=== PATIENT | female | born 1975 | race Two or more races ===

== ENCOUNTER 2024-08-27 23:07 | Inpatient (IN) | payer OTHER ==
[~2024-08-27] VITALS: Ht 170.2 cm; Wt 85.3 kg
[2024-08-27 23:37] LABS: BASOPHILS % (AUTO) 0.5 % (0.0-2.0); EOSINOPHILS # (AUTO) 0.2 K/uL (0.0-0.7); EOSINOPHILS % (AUTO) 3.1 % (0.0-7.0); HEMATOCRIT 28.4 % (31.2-41.9); HEMOGLOBIN 9.6 g/dL (10.9-14.3); LYMPHOCYTES # (AUTO) 0.9 K/uL (0.8-4.8); LYMPHOCYTES % (AUTO) 14.5 % (20.5-51.5); MEAN CORPUSCULAR HEMOGLOBIN 34.1 uug (24.7-32.8); MEAN CORPUSCULAR HGB CONC 34 g/dL (32.3-35.6); MEAN CORPUSCULAR VOLUME 101.4 fL (75.5-95.3); MONOCYTES # (AUTO) 0.5 K/uL (0.1-1.30); MONOCYTES % (AUTO) 8.2 % (0.0-11.0); NEUTROPHILS # (AUTO) 4.4 K/uL (1.8-8.9); NEUTROPHILS % (AUTO) 73.7 % (38.5-71.5); PLATELET COUNT (AUTO) 76 K/uL (179-408); RED CELL DISTRIBUTION WIDTH 17.8 % (12.3-17.7)
[2024-08-27] MEDS ORDERED: NITROGLYCERIN 0.4 MG/TAB BOTTLE SL ONE (23:42)
[2024-08-27] MEDS ORDERED: NITROGLYCERIN OINT 1 GM PACKET TP ONE (23:43)
[2024-08-27] MEDS: NITROGLYCERIN 0.4 MG/TAB BOTTLE SL ONE (23:46)
[2024-08-27 23:47] VITALS: BP 100/94
[2024-08-27 23:47] LABS: DIFFERENTIAL COMMENT 1
[2024-08-27] MEDS: NITROGLYCERIN OINT 1 GM PACKET TP ONE (23:47)
[2024-08-27 23:59] LABS: ALANINE AMINOTRANSFERASE 62 U/L (14-59); ALBUMIN 1.8 g/dL (3.4-5.0); ALKALINE PHOSPHATASE 295 U/L (50-136); ASPARTATE AMINOTRANSFERASE 89 U/L (15-37); BILIRUBIN,DIRECT 7.8 mg/dL (0.0-0.2); BILIRUBIN,TOTAL 8.4 mg/dL (0.2-1.0); CALCIUM 7.5 mg/dL (8.5-10.1); CARBON DIOXIDE 23 mmol/L (21-32); CHLORIDE 105 mmol/L (98-107); CREATININE 1.3 mg/dL (0.6-1.3); GLUCOSE 109 mg/dL (74-106); NT-PRO BNP 215 pg/mL (0-125); POTASSIUM 3.9 mmol/L (3.5-5.1); SODIUM SERUM 137 mmol/L (136-145); TOTAL PROTEIN, SERUM 6.3 g/dL (6.4-8.2); UREA NITROGEN, BLOOD 23 mg/dL (7-18)
[2024-08-28 01:07] LABS: LYMPHOCYTES % (MANUAL) 12 % (20-40); MONOCYTES % (MANUAL) 9 % (2-10); NEUTROPHILS % (MANUAL) 78 % (42-75)
[2024-08-28] MEDS ORDERED: diphenhydrAMINE 50 MG/1 ML VIAL ONE (02:51)
[2024-08-28] MEDS: diphenhydrAMINE 50 MG/1 ML VIAL IV ONE (03:03)
[2024-08-28] MEDS ORDERED: RIFA550T PO (03:11)
[2024-08-28] MEDS ORDERED: SPIR25TA6 PO (03:11)
[2024-08-28] MEDS ORDERED: URSO250T3 PO (03:11)
[2024-08-28] MEDS ORDERED: POLY119P2 PO (03:11)
[2024-08-28] MEDS ORDERED: FURO40TA5 PO (03:11)
[2024-08-28] MEDS ORDERED: norco PO (03:11)
[2024-08-28] MEDS ORDERED: ONDANSETRON 4 MG/2 ML VIAL IV PRN (03:15)
[2024-08-28] MEDS ORDERED: MAGNESIUM HYDROXIDE 30 ML LIQUID UDC PO PRN (03:15)
[2024-08-28] MEDS ORDERED: ACETAMINOPHEN 325 MG TABLET PO PRN (03:15)
[2024-08-28] MEDS ORDERED: LACTULOSE 20 G/30 ML LIQUID UDC ONE (03:21)
[2024-08-28] MEDS ORDERED: LORAZEPAM 2 MG/1 ML VIAL ONE (03:22)
[2024-08-28] MEDS: LACTULOSE 20 G/30 ML LIQUID UDC PO ONE (03:26)
[2024-08-28] MEDS: LORAZEPAM 2 MG/1 ML VIAL IV ONE (03:35)
[2024-08-28 04:00] VITALS: O2SAT 99
[2024-08-28] MEDS: PANTOPRAZOLE SODIUM 40 MG TABLET.DR PO SCH (06:43)
[2024-08-28 07:34] LABS: BASOPHILS % (AUTO) 0.6 % (0.0-2.0); EOSINOPHILS # (AUTO) 0.1 K/uL (0.0-0.7); EOSINOPHILS % (AUTO) 3.5 % (0.0-7.0); HEMATOCRIT 25.8 % (31.2-41.9); HEMOGLOBIN 8.8 g/dL (10.9-14.3); LYMPHOCYTES # (AUTO) 0.7 K/uL (0.8-4.8); MEAN CORPUSCULAR HEMOGLOBIN 34.4 uug (24.7-32.8); MEAN CORPUSCULAR HGB CONC 34 g/dL (32.3-35.6); MEAN CORPUSCULAR VOLUME 101.1 fL (75.5-95.3); MONOCYTES # (AUTO) 0.3 K/uL (0.1-1.30); MONOCYTES % (AUTO) 8.4 % (0.0-11.0); NEUTROPHILS # (AUTO) 2.8 K/uL (1.8-8.9); NEUTROPHILS % (AUTO) 69.5 % (38.5-71.5); PLATELET COUNT (AUTO) 58 K/uL (179-408); RED BLOOD CELL COUNT(AUTO) 2.56 MIL/uL (3.63-4.92); RED CELL DISTRIBUTION WIDTH 17.3 % (12.3-17.7); WHITE BLOOD COUNT (AUTO) 4.1 K/uL (3.8-11.8)
[2024-08-28 07:51] LABS: ALBUMIN 1.8 g/dL (3.4-5.0); BILIRUBIN,TOTAL 8.1 mg/dL (0.2-1.0); CALCIUM 7.9 mg/dL (8.5-10.1); CREATININE 1.1 mg/dL (0.6-1.3); MAGNESIUM 2.2 mg/dL (1.8-2.4); PHOSPHOROUS 3.7 mg/dL (2.5-4.9); POTASSIUM 3.9 mmol/L (3.5-5.1); TOTAL PROTEIN, SERUM 5.9 g/dL (6.4-8.2)
[2024-08-28 08:12] LABS: DIFFERENTIAL COMMENT 1
[2024-08-28] MEDS ORDERED: SPIRONOLACTONE 25 MG TABLET PO SCH ×2 (09:00)
[2024-08-28] MEDS ORDERED: FUROSEMIDE 40 MG TABLET PO SCH ×2 (09:00)
[2024-08-28] MEDS: RIFAXIMIN 550 MG TABLET PO SCH (09:58)
[2024-08-28] MEDS: FUROSEMIDE 40 MG TABLET PO SCH (10:37)
[2024-08-28] MEDS: SPIRONOLACTONE 50 MG TABLET PO SCH (10:37)
[2024-08-28] MEDS ORDERED: URSO300C12 PO (10:47)
[2024-08-28] MEDS ORDERED: ATEN25TA PO (10:48)
[2024-08-28] MEDS ORDERED: GABA300C PO (10:48)
[2024-08-28 16:32] LABS: EOSINOPHILS % (MANUAL) 3 % (0-8); HYPOCHROMASIA 1+; LYMPHOCYTES % (MANUAL) 16 % (20-40); MONOCYTES % (MANUAL) 6 % (2-10); NEUTROPHILS % (MANUAL) 75 % (42-75); PLATELET ESTIMATE MARKED DECREASED
[2024-08-28 16:33] LABS: ANISOCYTOSIS 1+
[2024-08-29] MEDS ORDERED: LACTULOSE 20 G/30 ML LIQUID UDC PO SCH (09:00)
== END 2024-08-28 14:50 | disposition home or self-care (01) | DRG 243 ==
LOC: EDBD 23:07 → ER 23:07 → TELE3 08-28 03:20
PROVIDERS: ATTEND Internal Medicine
DX: K21.9 Gastro-esophageal reflux disease without esophagitis (principal); E43 Unspecified severe protein-calorie malnutrition; Z76.82 Awaiting organ transplant status; D69.6 Thrombocytopenia, unspecified; K72.10 Chronic hepatic failure without coma; K22.4 Dyskinesia of esophagus; K74.60 Unspecified cirrhosis of liver; D64.9 Anemia, unspecified; Z95.5 Presence of coronary angioplasty implant and graft; E66.9 Obesity, unspecified; O26.63 Liver and biliary tract disorders in the puerperium; F32.A Depression, unspecified; I51.7 Cardiomegaly; R94.31 Abnormal electrocardiogram [ECG] [EKG]
CPT/HCPCS: 36415; 70030-TC; 71045; 83735; 84100; 84484; 85025; A4606; A4663; G0378; J1200; J2060